=== PATIENT | male | born 1985 | race African-American/Black ===

== ENCOUNTER 2020-11-07 11:36 | Outpatient (CLI) | payer BC | END 2020-11-07 11:37 | disposition home or self-care (01) | LOC: CTENTCT 11:36 | PROVIDERS: ATTEND Otolaryngology Plastic Surgery within the Head & Neck | DX: J32.8 Other chronic sinusitis (principal) | CPT/HCPCS: 70486 ==

== ENCOUNTER 2021-01-03 13:16 | Outpatient (CLI) | payer BC ==
[2021-01-04 03:55] LABS: SARS-CoV-2 PCR by NAA Not Detected (NotDetected)
== END 2021-01-03 13:17 | disposition home or self-care (01) ==
LOC: LABBT 13:16
PROVIDERS: ATTEND Otolaryngology Plastic Surgery within the Head & Neck
DX: J32.8 Other chronic sinusitis (principal); J01.90 Acute sinusitis, unspecified; J34.3 Hypertrophy of nasal turbinates; J34.89 Other specified disorders of nose and nasal sinuses; Z20.822 Contact with and (suspected) exposure to COVID-19
CPT/HCPCS: 87635; U0003; U0005

== ENCOUNTER 2021-01-08 07:21 | Day surgery (SDC) | payer BC ==
[2021-01-07 12:04] VITALS: BMI 31.3
[2021-01-08] MEDS ORDERED: AFRIN NASAL MIST 15 ML BOT ONE ×2 (07:44→09:57)
[2021-01-08] MEDS ORDERED: Lidocaine 1% w/Epinephrine 1:100K 20 ML VIAL ONE (09:57)
[2021-01-08] MEDS ORDERED: EPINEPHrine 1 MG/ML AMP ONE (09:57)
[2021-01-08] MEDS ORDERED: Bacitracin Zinc Ointment 30 gm TUBE ONE (09:57)
[2021-01-08] MEDS ORDERED: SUGAMMADEX SODIUM 200 MG/2 ML VIAL ONE (10:10)
[2021-01-08] MEDS ORDERED: Famotidine/PF 20 mg/2ml Vial ONE (10:10)
[2021-01-08] MEDS ORDERED: Fentanyl 100 MCG/2 ML VIAL ONE ×3 (10:10→12:43)
[2021-01-08] MEDS ORDERED: Lidocaine 1% PF 5 ML VIAL ONE (10:27)
[2021-01-08] MEDS ORDERED: Ondansetron PF 4 MG/2 ML Vial ONE (10:27)
[2021-01-08] MEDS ORDERED: Dexamethasone 20 MG/5 ML VIAL ONE (10:27)
[2021-01-08] MEDS ORDERED: PROPOFOL 200 MG/20 ML VIAL ONE (10:27)
[2021-01-08] MEDS ORDERED: Rocuronium Bromide 10 MG/ML (10ML VIAL) ONE (10:27)
[2021-01-08] MEDS ORDERED: Glycopyrrolate 0.2 MG/ML 5 ML SYRINGE ONE (10:27)
[2021-01-08] MEDS ORDERED: Hydrocodone-Acetamin 15 ML UDCUP ONE (12:50)
[2021-01-10 13:38] LABS: Fungus Stain Final report (.)
[2021-02-05 10:16] LABS: Fungus Culture Final report (.)
== END 2021-01-08 15:59 | disposition home or self-care (01) ==
LOC: SDC 07:21
PROVIDERS: ATTEND Otolaryngology Plastic Surgery within the Head & Neck
PROC: 09BT8ZZ Excision of Left Frontal Sinus, Via Natural or Artificial Opening Endoscopic (ICD-10-PCS; principal; 2021-01-08)
PROC: 09BQ8ZZ Excision of Right Maxillary Sinus, Via Natural or Artificial Opening Endoscopic (ICD-10-PCS; principal; 2021-01-08)
PROC: 09TL7ZZ Resection of Nasal Turbinate, Via Natural or Artificial Opening (ICD-10-PCS; principal; 2021-01-08)
PROC: 09BS8ZZ Excision of Right Frontal Sinus, Via Natural or Artificial Opening Endoscopic (ICD-10-PCS; principal; 2021-01-08)
PROC: 09TV8ZZ Resection of Left Ethmoid Sinus, Via Natural or Artificial Opening Endoscopic (ICD-10-PCS; principal; 2021-01-08)
PROC: 8E09XBZ Computer Assisted Procedure of Head and Neck Region (ICD-10-PCS; principal; 2021-01-08)
PROC: 09BX8ZZ Excision of Left Sphenoid Sinus, Via Natural or Artificial Opening Endoscopic (ICD-10-PCS; principal; 2021-01-08)
PROC: 09BR8ZZ Excision of Left Maxillary Sinus, Via Natural or Artificial Opening Endoscopic (ICD-10-PCS; principal; 2021-01-08)
PROC: 09BW8ZZ Excision of Right Sphenoid Sinus, Via Natural or Artificial Opening Endoscopic (ICD-10-PCS; principal; 2021-01-08)
PROC: 09TU8ZZ Resection of Right Ethmoid Sinus, Via Natural or Artificial Opening Endoscopic (ICD-10-PCS; principal; 2021-01-08)
DX: J32.9 Chronic sinusitis, unspecified (principal); J33.8 Other polyp of sinus; J30.89 Other allergic rhinitis; J34.3 Hypertrophy of nasal turbinates; J34.89 Other specified disorders of nose and nasal sinuses; J30.1 Allergic rhinitis due to pollen; J30.81 Allergic rhinitis due to animal (cat) (dog) hair and dander
CPT/HCPCS: 87070; 87077; 87102; 87186; 87205; 87206; 88304; C2625; J0171; J1100; J2405; J2704; J3010; S0028

== ENCOUNTER 2021-06-17 18:00 | Outpatient (CLI) | payer BC | END 2021-06-17 18:01 | disposition home or self-care (01) | LOC: SLEEPLAB 18:00 | PROVIDERS: ATTEND Otolaryngology Plastic Surgery within the Head & Neck | DX: G47.33 Obstructive sleep apnea (adult) (pediatric) (principal); R06.83 Snoring; J34.89 Other specified disorders of nose and nasal sinuses; G47.00 Insomnia, unspecified | CPT/HCPCS: 95806 ==

== ENCOUNTER 2021-07-10 14:23 | Outpatient (CLI) | payer BC | END 2021-07-10 14:24 | disposition home or self-care (01) | LOC: CTENTCT 14:23 | PROVIDERS: ATTEND Otolaryngology Plastic Surgery within the Head & Neck | DX: J32.9 Chronic sinusitis, unspecified (principal) | CPT/HCPCS: 70486 ==